=== PATIENT | female | born 1960 | race African-American/Black ===

== ENCOUNTER 2016-03-29 12:51 | Emergency (ER) | payer MEDICAID ==
[~2016-03-29] VITALS: Ht 175.3 cm; Wt 54.1 kg
[~2016-03-29 12:51] MED LIST: NORCO 325 MG-51 TAB PO; PERCOCET 325 MG1 TA2 PO; PRIL40 PO; ULTRAM 50MG TAB50 MG PO; ZOFRAN8 MG PO
[2016-03-29 12:58] VITALS: BP 151/96
[2016-03-29] MEDS ORDERED: NORCO 325 MG-51 TAB PO (14:46)
[2016-03-29 14:54] VITALS: PULSE 88; TEMP 98.4
== END 2016-03-29 14:51 | disposition home or self-care (01) ==
LOC: COL.ER 12:51
DX: S70.01XA Contusion of right hip, initial encounter (principal); W17.89XA Other fall from one level to another, initial encounter

== ENCOUNTER 2016-08-17 19:42 | Emergency (ER) | payer MEDICAID ==
[~2016-08-17] VITALS: Ht 177.8 cm; Wt 54.5 kg
[2016-08-17 19:45] VITALS: TEMP 98.7
[2016-08-17 20:23] LABS: PH 5 (5-8); SQUAMOUS EPITHELIAL 0-2 /hpf; URINE APPEARANCE Clear; URINE BACTERIA Rare /hpf; URINE BILIRUBIN Negative (NEGATIVE); URINE BLOOD Negative (NEGATIVE); URINE COLOR Straw; URINE GLUCOSE Negative (NEGATIVE); URINE KETONE Negative (NEGATIVE); URINE RBC 0-2 /hpf; URINE UROBILINOGEN Negative (NEGATIVE); URINE WBC 0-2 /hpf
[2016-08-17 20:39] LABS: AMPHETAMINE URINE NEGATIVE; BARBITURATES URINE NEGATIVE; BENZODIAZEPINES URINE NEGATIVE; BUPRENORPHINE URINE NEGATIVE; METHADONE URINE NEGATIVE; OPIATES URINE POSITIVE; OXYCODONE URINE POSITIVE; PHENCYCLIDINE URINE NEGATIVE; PROPOXYPHENE URINE NEGATIVE; THC CANNABINOIDS URINE NEGATIVE
[2016-08-17 21:35] VITALS: BP 112/64; PULSE 81
== END 2016-08-17 21:35 | disposition home or self-care (01) ==
LOC: COL.ER 19:42
PROVIDERS: Nurse Practitioner
DX: M54.31 Sciatica, right side (principal); M25.552 Pain in left hip
CPT/HCPCS: J7512

== ENCOUNTER 2016-08-18 16:46 | Emergency (ER) | payer MEDICAID ==
[~2016-08-18] VITALS: Ht 177.8 cm; Wt 52.3 kg
[2016-08-18 16:50] VITALS: BP 166/82; PULSE 112; TEMP 98.6
[2016-08-18 17:31] LABS: BASO % 0.6 % (0.0-2.0); EOS # 0.1 (0.0-0.7); EOS % 0.7 % (0-4.0); GRAN # 3.8 (1.4-6.5); GRAN % 55.1 % (42.2-75.2); HEMOGLOBIN 13.2 g/dl (12.5-16.0); LYMPH # 2.4 (1.2-3.4); LYMPH % 34.3 % (20.0-51.0); MEAN CELL VOLUME 77 fl (80.0-100.0); MEAN CORPUSCULAR HEMOGLOBIN 28 pg (27.0-31.0); MEAN CORPUSCULAR HGB CONC 37 g/dl (33.0-37.0); MEAN PLATELET VOLUME 11.5 fl (7.4-10.4); MONO # 0.6 (0.1-0.6); PLATELET COUNT 227 K/mm3 (130-400); RED BLOOD COUNT 4.68 M/mm3 (4.10-5.30); REDCELL DISTRIBUTION WIDTH-CV 14.4 % (11.5-14.5)
[2016-08-18 17:38] LABS: ADJUSTED CALCIUM 9.3 mg/dL (8.4-10.2); ALANINE AMINOTRANSFERASE 34 U/L (9-52); ALKALINE PHOSPHATASE 99 U/L (50-136); ANION GAP 18 mmol/L (7-16); BILIRUBIN,TOTAL 0.8 mg/dL (0.0-1.0); BLOOD UREA NITROGEN 6 mg/dL (7-17); CALCIUM 10.1 mg/dL (8.4-10.2); CARBON DIOXIDE 18 mmol/L (22-30); CHLORIDE 102 mmol/L (98-107); CREATININE, serum 0.56 mg/dL (0.52-1.25); GLUCOSE 85 mg/dL (74-106); POTASSIUM 3.9 mmol/L (3.4-5.0); SODIUM 138 mmol/L (137-145); TOTAL PROTEIN 8.3 gm/dL (6.4-8.2)
[2016-08-18 17:40] LABS: ACETAMINOPHEN < 10 ug/mL (10-30); HEMATOCRIT 35.9 % (37.0-47.0); SALICYLATE < 1.0 mg/dL
[2016-08-18 17:42] LABS: AMPHETAMINE URINE NEGATIVE; BARBITURATES URINE NEGATIVE; BENZODIAZEPINES URINE NEGATIVE; BUPRENORPHINE URINE NEGATIVE; METHADONE URINE NEGATIVE; OPIATES URINE POSITIVE; OXYCODONE URINE NEGATIVE; PHENCYCLIDINE URINE NEGATIVE; PROPOXYPHENE URINE NEGATIVE; THC CANNABINOIDS URINE NEGATIVE
[2016-08-18 17:46] LABS: PH 5 (5-8); SQUAMOUS EPITHELIAL 0-2 /hpf; URINE APPEARANCE Clear; URINE BACTERIA Rare /hpf; URINE BILIRUBIN Negative (NEGATIVE); URINE BLOOD Negative (NEGATIVE); URINE COLOR Straw; URINE GLUCOSE Negative (NEGATIVE); URINE KETONE Negative (NEGATIVE); URINE RBC 0-2 /hpf; URINE UROBILINOGEN Negative (NEGATIVE); URINE WBC 0-2 /hpf
== END 2016-08-18 19:40 | disposition left against medical advice (07) ==
LOC: COL.ER 16:46
PROVIDERS: Emergency Medicine
DX: F10.120 Alcohol abuse with intoxication, uncomplicated (principal); Y90.8 Blood alcohol level of 240 mg/100 ml or more; R45.851 Suicidal ideations; Z53.21 Procedure and treatment not carried out due to patient leaving prior to being seen by health care provider; M25.552 Pain in left hip

== ENCOUNTER 2017-09-08 05:41 | Day surgery (SDC) | payer MEDICAID ==
[~2017-09-08] VITALS: Ht 175.3 cm; Wt 44.3 kg
[2017-09-08] MEDS ORDERED: ALEVE 220MG220 MG PO (06:08)
[2017-09-08] MEDS ORDERED: LEVSIN0.125 M1 PO (06:13)
[2017-09-08 06:22] VITALS: BP 121/64; PULSE 60; TEMP 97.4
[2017-09-08 06:46] LABS: TRICYCLIC ANTIDEPRESS URINE NEGATIVE
== END 2017-09-08 07:05 | disposition home or self-care (01) ==
LOC: SDCO 05:41
PROVIDERS: Surgery
DX: D17.22 Benign lipomatous neoplasm of skin and subcutaneous tissue of left arm (principal); Z53.9 Procedure and treatment not carried out, unspecified reason; F17.210 Nicotine dependence, cigarettes, uncomplicated
CPT/HCPCS: J2704; J3010

== ENCOUNTER → 2018-01-20 | Outpatient (CLI) | payer MEDICAID ==
[~2018-01-20] MED LIST changes: +ALEVE 220MG220 MG PO; +LEVSIN0.125 M1 PO
[2018-01-20 15:13] LABS: COLLECTION METHOD CLEAN CATCH
[2018-01-20 15:19] LABS: BASO # 0.1 (0.0-0.2); BASO % 0.8 % (0.0-2.0); EOS # 0.3 (0.0-0.7); EOS % 3.2 % (0-4.0); GRAN # 5.1 (1.4-6.5); GRAN % 64.3 % (42.2-75.2); HEMATOCRIT 38.8 % (37.0-47.0); HEMOGLOBIN 13.7 g/dl (12.5-16.0); LYMPH # 1.9 (1.2-3.4); LYMPH % 24.3 % (20.0-51.0); MEAN CELL VOLUME 82 fl (80.0-100.0); MEAN CORPUSCULAR HEMOGLOBIN 29 pg (27.0-31.0); MEAN CORPUSCULAR HGB CONC 35 g/dl (33.0-37.0); MEAN PLATELET VOLUME 11.4 fl (7.4-10.4); MONO # 0.6 (0.1-0.6); MONO % 7.3 % (1.7-9.3); PLATELET COUNT 199 K/mm3 (130-400); RED BLOOD COUNT 4.73 M/mm3 (4.10-5.30); REDCELL DISTRIBUTION WIDTH-CV 14.1 % (11.5-14.5)
[2018-01-20 15:24] LABS: MUCOUS Present /lpf; PH 5 (5-8); SQUAMOUS EPITHELIAL 0-2 /hpf; URINE APPEARANCE Clear; URINE BACTERIA None Seen /hpf; URINE BILIRUBIN Negative (NEGATIVE); URINE BLOOD Negative (NEGATIVE); URINE COLOR Yellow; URINE GLUCOSE Negative (NEGATIVE); URINE KETONE Negative (NEGATIVE); URINE LEUKOCYTE ESTERASE Negative (NEGATIVE); URINE NITRATE Negative (NEGATIVE); URINE PROTEIN(semi-quant) Negative (NEGATIVE); URINE RBC 0-2 /hpf; URINE UROBILINOGEN Negative (NEGATIVE)
[2018-01-20 15:33] LABS: ALBUMIN 4.5 gm/dL (3.5-5.0); BILIRUBIN,TOTAL 0.3 mg/dL (0.0-1.0); CALCIUM 10.4 mg/dL (8.4-10.2); CREATININE, serum 0.58 mg/dL (0.52-1.25); POTASSIUM 4.8 mmol/L (3.4-5.0); TOTAL PROTEIN 7.8 gm/dL (6.4-8.2)
[2018-01-20 15:39] LABS: TRICYCLIC ANTIDEPRESS URINE NEGATIVE
[2018-01-20 15:44] LABS: HIV 1/2 Antibodies Non-Reactive; HIV-1p24 Antigen Non-Reactive
[2018-01-20 16:04] LABS: THYROID STIMULATING HORMONE 1.27 uIU/mL (0.465-4.680)
== END ==
LOC: COL.LAB 13:29
PROVIDERS: Family Medicine
DX: R41.3 Other amnesia (principal); E46 Unspecified protein-calorie malnutrition; M79.601 Pain in right arm